=== PATIENT | female | born 1960 | race Caucasian/White ===

== ENCOUNTER 2019-01-06 07:01 | Observation (INO) ==
[2019-01-06] MEDS ORDERED: NITROGLYCERIN 2% OINT 1 INCH/GM PACK TOP STA (07:19)
[2019-01-06] MEDS ORDERED: ASPIRIN 325 MG TABLET PO STA (07:19)
[2019-01-06 07:49] LABS: Basophils # 0.1 10*3/uL (0.0-0.2); Basophils % 0.6 % (0.0-0.8); Eosinophils # 0.2 10*3/uL (0.0-0.87); Eosinophils % 2.3 % (0.00-10.9); Hematocrit 46.8 VOL% (35.7-47.0); Hemoglobin 15.3 GM/DL (12.0-16.0); Immature Granulocytes % 0.4 %; Immature Granulocytes Absolute 0.04 #; Lymphocytes # 3.5 10*3/uL (1.4-4.0); Lymphocytes % 35.3 % (21.3-54.2); Mean Corpuscular HGB Conc 32.7 GM/DL (32-36); Mean Corpuscular Hemoglobin 29 PG (27-34); Mean Corpuscular Volume 87.2 FL (87-102); Mean Platelet Volume 9.9 FL (9.6-12.0); Monocytes # 0.8 10*3/uL (0.11-0.8); Monocytes % 7.8 % (1.7-12.7); Neutrophils # 5.4 10*3/uL (1.4-7.4); Neutrophils % 53.6 % (38.7-73.9); Platelet Count 255 T/CUMM (130-400); Red Blood Count 5.37 MC/CUMM (3.8-5.5); Red Cell Distribution Width 13.4 % (9.3-17.3)
[2019-01-06 08:04] LABS: Partial Thromboplastin Time 33.6 SECS (0-40)
[2019-01-06 08:08] LABS: INR 1.9; PT Patient Result 20.4 SECS
[2019-01-06 08:15] LABS: Albumin 3.7 G/DL (3.4-5.0); Bilirubin,Total 1.5 MG/DL (0.2-1.0); Calcium 9.3 MG/DL (8.5-10.1); Osmolality,Calculated 279.7 MOS/KG (273-304); Potassium 4.8 MMOL/L (3.5-5.1); Total Protein 7.1 G/DL (6.4-8.3)
[2019-01-06] MEDS ORDERED: ZALEPLON 5 MG CAPSULE PO PRN (08:40)
[2019-01-06] MEDS ORDERED: BISACODYL 5 MG TABLET PO PRN (08:40)
[2019-01-06] MEDS ORDERED: ACETAMINOPHEN 325 MG TABLET PO PRN (08:40)
[2019-01-06] MEDS ORDERED: ONDANSETRON 4 MG/2 ML VIAL IV PRN (08:40)
[2019-01-06] MEDS ORDERED: diphenhydrAMINE CAP 25 MG CAPSULE PO PRN (08:40)
[2019-01-06] MEDS ORDERED: GLUCAGON 1 MG VIAL IM PRN (08:42)
[2019-01-06] MEDS ORDERED: DEXTROSE 50% 25 GM/50 ML VIAL IV PRN (08:42)
[2019-01-06] MEDS ORDERED: NITROGLYCERIN SL 0.4 MG TABLET SL PRN (08:46)
[2019-01-06] MEDS ORDERED: LISINOPRIL 10 MG TABLET PO SCH (09:00)
[2019-01-06] MEDS ORDERED: ALBUTEROL/IPRATROPIUM 3 ML NEB RESP TX STA (09:09)
[2019-01-06] MEDS ORDERED: HYDROmorphone 2 MG/1 ML VIAL IV PRN (10:35)
[2019-01-06] MEDS: ASPIRIN EC 81 MG TABLET PO SCH (11:54)
[2019-01-06] MEDS: INSULIN REGULAR 100 UNIT/ML SUBCUT SCH ×3 (12:31→20:44)
[2019-01-06] MEDS: DULoxetine 30 MG CAPSULE PO SCH (14:23)
[2019-01-06] MEDS: GABAPENTIN 600 MG TABLET PO SCH ×2 (14:23→23:05)
[2019-01-06] MEDS: EZETIMIBE 10 MG TABLET PO SCH (14:24)
[2019-01-06] MEDS: traMADol 50 MG TABLET PO PRN (14:27)
[2019-01-06] MEDS: CARVEDILOL 6.25 MG TABLET PO SCH ×2 (14:28→23:05)
[2019-01-06] MEDS: FAMOTIDINE 20 MG TABLET PO SCH ×2 (14:33→23:06)
[2019-01-06] MEDS ORDERED: WARFARIN 5 MG TABLET PO SCH (18:00)
[2019-01-06] MEDS: METHOCARBAMOL 500 MG TABLET PO PRN (20:59)
[2019-01-06] MEDS ORDERED: SERTRALINE 100 MG TABLET PO SCH (21:00)
[2019-01-06] MEDS ORDERED: ATORVASTATIN 80 MG TABLET PO SCH (21:00)
[2019-01-07 04:37] LABS: Basophils # 0.1 10*3/uL (0.0-0.2); Basophils % 0.7 % (0.0-0.8); Eosinophils # 0.2 10*3/uL (0.0-0.87); Eosinophils % 2.6 % (0.00-10.9); Hemoglobin 14.2 GM/DL (12.0-16.0); Immature Granulocytes % 0.3 %; Immature Granulocytes Absolute 0.03 #; Lymphocytes # 3.3 10*3/uL (1.4-4.0); Lymphocytes % 37.2 % (21.3-54.2); Mean Corpuscular HGB Conc 32.3 GM/DL (32-36); Mean Corpuscular Hemoglobin 28 PG (27-34); Mean Corpuscular Volume 87.8 FL (87-102); Mean Platelet Volume 10.1 FL (9.6-12.0); Monocytes # 0.7 10*3/uL (0.11-0.8); Monocytes % 7.9 % (1.7-12.7); Neutrophils # 4.6 10*3/uL (1.4-7.4); Neutrophils % 51.3 % (38.7-73.9); Platelet Count 223 T/CUMM (130-400); Red Blood Count 5.01 MC/CUMM (3.8-5.5); Red Cell Distribution Width 13.4 % (9.3-17.3); White Blood Count 8.9 T/CUMM (4-12)
[2019-01-07 04:48] LABS: INR 1.8; PT Patient Result 19.5 SECS
[2019-01-07 04:51] LABS: Calcium 8.8 MG/DL (8.5-10.1); Osmolality,Calculated 279.3 MOS/KG (273-304); Potassium 4.1 MMOL/L (3.5-5.1); Risk Ratio 3.18; VLDL CHOLESTEROL 24.8 MG/DL
[2019-01-07] MEDS: INSULIN REGULAR 100 UNIT/ML SUBCUT SCH ×2 (10:04→13:00)
[2019-01-07] MEDS: EZETIMIBE 10 MG TABLET PO SCH (10:12)
[2019-01-07] MEDS: ASPIRIN EC 81 MG TABLET PO SCH (10:12)
[2019-01-07] MEDS: DULoxetine 30 MG CAPSULE PO SCH (10:12)
[2019-01-07] MEDS: FAMOTIDINE 20 MG TABLET PO SCH (10:12)
[2019-01-07] MEDS: GABAPENTIN 600 MG TABLET PO SCH (10:12)
[2019-01-07] MEDS: CARVEDILOL 6.25 MG TABLET PO SCH (10:13)
[2019-01-07] MEDS: traMADol 50 MG TABLET PO PRN (10:13)
[2019-01-07] MEDS ORDERED: LOSARTAN 25 MG TABLET PO SCH (12:00)
[2019-01-07 12:14] VITALS: BP 102/63
[2019-01-07] MEDS ORDERED: MOMETASONE 50 MCG NASAL SPRAY 17 GM BOTTLE BOTH NARES SCH (13:00)
[2019-01-07] MEDS: METHOCARBAMOL 500 MG TABLET PO PRN (13:04)
== END 2019-01-07 14:48 | disposition left against medical advice (07) ==
LOC: N.EDINP 07:01 → N.ED 07:01 → N.EDINP 11:34 → N.TELEN 11:39
PROVIDERS: ADMIT Internal Medicine Cardiovascular Disease; ATTEND Internal Medicine Cardiovascular Disease

== ENCOUNTER 2019-08-31 11:33 | Observation (INO) ==
[2019-08-31] MEDS ORDERED: ASPIRIN 325 MG TABLET PO STA (12:09)
[2019-08-31] MEDS ORDERED: ONDANSETRON 4 MG/2 ML VIAL IV STA (12:09)
[2019-08-31] MEDS ORDERED: MORPHINE 4 MG/1 ML VIAL IV STA (12:09)
[2019-08-31 12:25] LABS: Basophils # 0.1 10*3/uL (0.0-0.2); Basophils % 0.6 % (0.0-0.8); Eosinophils # 0.2 10*3/uL (0.0-0.87); Eosinophils % 2.8 % (0.00-10.9); Hemoglobin 14.2 GM/DL (12.0-16.0); Immature Granulocytes % 0.2 %; Immature Granulocytes Absolute 0.02 #; Lymphocytes # 3.3 10*3/uL (1.4-4.0); Lymphocytes % 39.8 % (21.3-54.2); Mean Corpuscular Volume 87.2 FL (87-102); Mean Platelet Volume 10.5 FL (9.6-12.0); Monocytes % 7.6 % (1.7-12.7); Platelet Count 228 T/CUMM (130-400); Red Blood Count 4.93 MC/CUMM (3.8-5.5); Red Cell Distribution Width 13.5 % (9.3-17.3); White Blood Count 8.3 T/CUMM (4-12)
[2019-08-31 12:43] LABS: Albumin 3.5 G/DL (3.4-5.0); Bilirubin,Total 0.8 MG/DL (0.2-1.0); Calcium 8.6 MG/DL (8.5-10.1); Osmolality,Calculated 281.4 MOS/KG (273-304); Partial Thromboplastin Time 36.9 SECS (20.8-36.0); Total Protein 6.6 G/DL (6.4-8.3)
[2019-08-31 12:49] LABS: INR 2.3; PT Patient Result 24.9 SECS (9.6-12.2)
[2019-08-31] MEDS ORDERED: ONDANSETRON 4 MG/2 ML VIAL IV PRN (16:17)
[2019-08-31] MEDS ORDERED: DEXTROSE 50% 25 GM/50 ML VIAL IV PRN (16:25)
[2019-08-31] MEDS ORDERED: GLUCAGON 1 MG VIAL IM PRN (16:25)
[2019-08-31] MEDS: INSULIN LISPRO 100 UNIT/ML SUBCUT SCH ×2 (16:45→20:13)
[2019-08-31] MEDS ORDERED: NITROGLYCERIN SL 0.4 MG TABLET SL PRN (17:00)
[2019-08-31] MEDS ORDERED: DICLOFENAC 1% GEL 100 GM TUBE TOP PRN (17:28)
[2019-08-31] MEDS ORDERED: WARFARIN 5 MG TABLET PO SCH (18:00)
[2019-08-31 18:13] LABS: Risk Ratio 3.33; VLDL CHOLESTEROL 32.2 MG/DL
[2019-08-31] MEDS: METHOCARBAMOL 750 MG TABLET PO PRN (20:11)
[2019-08-31] MEDS: GABAPENTIN 600 MG TABLET PO SCH (20:11)
[2019-08-31] MEDS ORDERED: INSULIN GLARGINE 100 UNIT/ML SUBCUT SCH (21:00)
[2019-08-31] MEDS ORDERED: DIAZEPAM 2 MG TABLET PO SCH (21:00)
[2019-08-31] MEDS ORDERED: ATORVASTATIN 40 MG TABLET PO SCH (21:00)
[2019-08-31] MEDS ORDERED: ASPIRIN EC 81 MG TABLET PO SCH (21:00)
[2019-08-31] MEDS ORDERED: carvediloL 6.25 MG TABLET PO SCH (21:00)
[2019-09-01] MEDS: METHOCARBAMOL 750 MG TABLET PO PRN (05:52)
[2019-09-01 06:14] LABS: Basophils # 0.1 10*3/uL (0.0-0.2); Basophils % 0.6 % (0.0-0.8); Eosinophils # 0.2 10*3/uL (0.0-0.87); Eosinophils % 2.5 % (0.00-10.9); Hematocrit 43.4 VOL% (35.7-47.0); Hemoglobin 13.7 GM/DL (12.0-16.0); Immature Granulocytes % 0.4 %; Immature Granulocytes Absolute 0.03 #; Lymphocytes # 2.7 10*3/uL (1.4-4.0); Lymphocytes % 33.1 % (21.3-54.2); Mean Corpuscular HGB Conc 31.6 GM/DL (32-36); Mean Corpuscular Volume 89.3 FL (87-102); Mean Platelet Volume 10.3 FL (9.6-12.0); Monocytes % 7.7 % (1.7-12.7); Neutrophils % 55.7 % (38.7-73.9); Platelet Count 209 T/CUMM (130-400); Red Blood Count 4.86 MC/CUMM (3.8-5.5); Red Cell Distribution Width 13.6 % (9.3-17.3); White Blood Count 8.1 T/CUMM (4-12)
[2019-09-01 06:28] LABS: INR 2.3
[2019-09-01 06:34] LABS: Calcium 9.2 MG/DL (8.5-10.1); Osmolality,Calculated 287.8 MOS/KG (273-304)
[2019-09-01 07:06] LABS: PT Patient Result 25.3 SECS (9.6-12.2)
[2019-09-01 07:40] VITALS: BP 105/50
[2019-09-01] MEDS: INSULIN LISPRO 100 UNIT/ML SUBCUT SCH (07:52)
[2019-09-01] MEDS ORDERED: EZETIMIBE 10 MG TABLET PO SCH (09:00)
[2019-09-01] MEDS ORDERED: SERTRALINE 100 MG TABLET PO SCH (09:00)
[2019-09-01] MEDS ORDERED: PANTOPRAZOLE 40 MG TABLET PO SCH (09:00)
[2019-09-01] MEDS ORDERED: carvediloL 6.25 MG TABLET PO SCH (09:00)
[2019-09-01] MEDS ORDERED: DULoxetine 30 MG CAPSULE PO SCH (09:00)
[2019-09-01] MEDS: GABAPENTIN 600 MG TABLET PO SCH (09:27)
== END 2019-09-01 13:15 | disposition home or self-care (01) ==
LOC: N.EDINP 11:33 → N.ED 11:33 → N.2W 15:40
PROVIDERS: ADMIT Hospitalist; ATTEND Hospitalist

== ENCOUNTER 2020-02-21 14:01 | Observation (INO) ==
[2020-02-21 14:42] LABS: Basophils # 0.1 10*3/uL (0.0-0.2); Basophils % 0.7 % (0.0-0.8); Eosinophils # 0.2 10*3/uL (0.0-0.87); Eosinophils % 2.7 % (0.00-10.9); Hematocrit 44.1 VOL% (35.7-47.0); Hemoglobin 13.8 GM/DL (12.0-16.0); Immature Granulocytes % 0.1 %; Immature Granulocytes Absolute 0.01 #; Lymphocytes # 2.7 10*3/uL (1.4-4.0); Lymphocytes % 32.8 % (21.3-54.2); Mean Corpuscular HGB Conc 31.3 GM/DL (32-36); Mean Corpuscular Volume 88.9 FL (87-102); Mean Platelet Volume 10.3 FL (9.6-12.0); Neutrophils % 56.7 % (38.7-73.9); Platelet Count 217 T/CUMM (130-400); Red Blood Count 4.96 MC/CUMM (3.8-5.5); Red Cell Distribution Width 13.4 % (9.3-17.3); White Blood Count 8.1 T/CUMM (4-12)
[2020-02-21 14:48] LABS: INR 2.4
[2020-02-21 14:55] LABS: PT Patient Result 26.3 SECS (9.6-12.2)
[2020-02-21 15:00] LABS: Albumin 3.2 G/DL (3.4-5.0); Bilirubin,Total 0.8 MG/DL (0.2-1.0); Osmolality,Calculated 277.7 MOS/KG (273-304); Total Protein 6.7 G/DL (6.4-8.3)
[2020-02-21 15:55] LABS: Apearance,Urine CLEAR (Clear); Bilirubin,Urine Negative (Negative); Blood, Urine Negative (Negative); Glucose,Urine (UA) >=500 mg/dL (Negative); Hyaline Casts,Urine 1 /LPF (0-3); Ketones,Urine Negative (Negative); Mucus,Urine Occasional /LPF (Occasional); Nitrite,Urine Negative (Negative); Protein,Urine Negative; RBC,Urine 1 /HPF (0-4); Urine Color Yellow (Yellow); Urine Specific Gravity 1.033 (1.001-1.035); Urine Urobilinogen < 2.0 EU/DL (0.2-1.0); WBC,Urine <1 /HPF (0-6)
[2020-02-21 15:56] LABS: Barbiturates Screen,Urine Negative (Negative); Benzodiazepines Screen,Urine Positive (Negative); Cannabinoid Screen,Urine Negative (Negative); Opiate Screen,Urine Positive (Negative); Phencyclidine Screen,Urine Negative (Negative)
[2020-02-21] MEDS ORDERED: GLUCAGON 1 MG VIAL IM PRN (16:07)
[2020-02-21] MEDS ORDERED: ONDANSETRON 4 MG/2 ML VIAL IV PRN (16:07)
[2020-02-21] MEDS ORDERED: DEXTROSE 10% 250 ML BAG IV PRN (16:07)
[2020-02-21] MEDS ORDERED: MECLIZINE 25 MG TABLET PO PRN (16:20)
[2020-02-21] MEDS ORDERED: NITROGLYCERIN SL 0.4 MG TABLET SL PRN (16:20)
[2020-02-21] MEDS ORDERED: DICLOFENAC 1% GEL 100 GM TUBE TOP PRN (16:20)
[2020-02-21] MEDS ORDERED: WARFARIN 5 MG TABLET PO SCH (18:00)
[2020-02-21] MEDS: METHOCARBAMOL 750 MG TABLET PO PRN (19:58)
[2020-02-21] MEDS ORDERED: ASPIRIN EC 81 MG TABLET PO SCH (21:00)
[2020-02-21] MEDS ORDERED: NEBIVOLOL 5 MG TABLET PO SCH (21:00)
[2020-02-21] MEDS ORDERED: INSULIN GLARGINE 100 UNIT/ML SUBCUT SCH (21:00)
[2020-02-21] MEDS ORDERED: INSULIN LISPRO 100 UNIT/ML SUBCUT PRN (21:00)
[2020-02-21] MEDS: DULoxetine 30 MG CAPSULE PO SCH (21:57)
[2020-02-21] MEDS: FAMOTIDINE 20 MG TABLET PO SCH (22:02)
[2020-02-22] MEDS: METHOCARBAMOL 750 MG TABLET PO PRN ×2 (01:39→08:26)
[2020-02-22 06:04] LABS: Basophils # 0.1 10*3/uL (0.0-0.2); Basophils % 0.8 % (0.0-0.8); Eosinophils # 0.2 10*3/uL (0.0-0.87); Eosinophils % 2.3 % (0.00-10.9); Hematocrit 44.6 VOL% (35.7-47.0); Hemoglobin 13.9 GM/DL (12.0-16.0); Immature Granulocytes % 0.3 %; Immature Granulocytes Absolute 0.03 #; Lymphocytes # 3.2 10*3/uL (1.4-4.0); Lymphocytes % 34.3 % (21.3-54.2); Mean Corpuscular HGB Conc 31.2 GM/DL (32-36); Mean Platelet Volume 10.2 FL (9.6-12.0); Monocytes % 6.9 % (1.7-12.7); Neutrophils % 55.4 % (38.7-73.9); Platelet Count 213 T/CUMM (130-400); Red Blood Count 5.01 MC/CUMM (3.8-5.5); Red Cell Distribution Width 13.4 % (9.3-17.3); White Blood Count 9.3 T/CUMM (4-12)
[2020-02-22 06:18] LABS: INR 2.2
[2020-02-22 06:19] LABS: PT Patient Result 23.3 SECS (9.6-12.2)
[2020-02-22 06:28] LABS: Calcium 8.7 MG/DL (8.5-10.1); Osmolality,Calculated 277.7 MOS/KG (273-304)
[2020-02-22] MEDS: DULoxetine 30 MG CAPSULE PO SCH (08:25)
[2020-02-22] MEDS: FAMOTIDINE 20 MG TABLET PO SCH (08:26)
[2020-02-22] MEDS ORDERED: lisinopriL 10 MG TABLET PO SCH (09:00)
[2020-02-22] MEDS ORDERED: EZETIMIBE 10 MG TABLET PO SCH (09:00)
[2020-02-22] MEDS ORDERED: Empagliflozin [Jardiance] 25 MG PO SCH (09:00)
[2020-02-22] MEDS ORDERED: ERGOCALCIFEROL 50,000 UNIT CAPSULE PO SCH (09:00)
[2020-02-22 12:00] VITALS: BP 93/70
[2020-02-22] MEDS ORDERED: WARFARIN 5 MG TABLET PO SCH (18:00)
== END 2020-02-22 11:55 | disposition home or self-care (01) ==
LOC: EDUNIT# → EDBD → N.EDINP 14:01 → N.ED 14:01 → N.3E 17:28
PROVIDERS: ADMIT Family Medicine; ATTEND Family Medicine